=== PATIENT | male | born 1980 | race Caucasian/White ===

== ENCOUNTER 2021-11-16 05:53 | Emergency (ER) | payer OTHER ==
[2021-11-16 06:35] LABS: RED BLOOD COUNT 4.96 M/UL (4.20-5.50); WHITE BLOOD COUNT 11.9 K/UL (4.5-11.0)
[2021-11-16 07:01] LABS: BUN/CREATININE RATIO 19 (0-10)
[2021-11-16] MEDS ORDERED: TORADOL 10 MG T10 MG PO (10:07)
[2021-11-16] MEDS ORDERED: ZOFRAN 4 MG TAB4 MG PO (10:07)
== END 2021-11-16 10:15 | disposition home or self-care (01) ==
LOC: ER1 05:53
PROVIDERS: Physician Assistant
DX: N13.2 Hydronephrosis with renal and ureteral calculous obstruction (principal)
CPT/HCPCS: 80053; 81001; 83690; 85025; 93005; 96361; 96374; 96375; 99284; J1885; J2270; J2405; J7030